=== PATIENT | female | born 1945 | race Caucasian/White ===

== ENCOUNTER 2024-03-02 18:17 | Inpatient (IN) | payer MEDICARE, BC ==
[~2024-03-02] VITALS: Ht 157.5 cm; Wt 73.9 kg
[2024-03-02] MEDS ORDERED: PANT40TA49 PO (18:41)
[2024-03-02] MEDS ORDERED: LORA0.5T48 PO (18:41)
[2024-03-02] MEDS ORDERED: ALEN70TA3 PO (18:41)
[2024-03-02] MEDS ORDERED: APIX5TAB PO (18:41)
[2024-03-02] MEDS ORDERED: GABA-532 PO (18:41)
[2024-03-02] MEDS ORDERED: LEVO100T10 PO (18:41)
[2024-03-02] MEDS ORDERED: CALC-343 PO (18:41)
[2024-03-02] MEDS ORDERED: LAMO200T10 PO (18:41)
[2024-03-02] MEDS ORDERED: ESCI10TA PO (18:41)
[2024-03-02] MEDS: IV NORMAL SALINE 500 ML BAG IV ONE (19:34)
[2024-03-02 19:45] LABS: BASOPHILS % (AUTO) 0.4 % (0.0-2.0); EOSINOPHILS # (AUTO) 0.2 K/uL (0.0-0.7); EOSINOPHILS % (AUTO) 2.6 % (0.0-7.0); HEMATOCRIT 38.6 % (31.2-41.9); HEMOGLOBIN 13.3 g/dL (10.9-14.3); LYMPHOCYTES # (AUTO) 1.4 K/uL (0.8-4.8); MEAN CORPUSCULAR HEMOGLOBIN 31.3 uug (24.7-32.8); MEAN CORPUSCULAR HGB CONC 35 g/dL (32.3-35.6); MEAN CORPUSCULAR VOLUME 90.7 fL (75.5-95.3); MONOCYTES # (AUTO) 0.6 K/uL (0.1-1.30); MONOCYTES % (AUTO) 9.8 % (0.0-11.0); NEUTROPHILS # (AUTO) 3.8 K/uL (1.8-8.9); NEUTROPHILS % (AUTO) 63.2 % (38.5-71.5); PLATELET COUNT (AUTO) 207 K/uL (179-408); RED BLOOD CELL COUNT(AUTO) 4.26 MIL/uL (3.63-4.92); RED CELL DISTRIBUTION WIDTH 13.2 % (12.3-17.7)
[2024-03-02 20:14] LABS: ALBUMIN 3.5 g/dL (3.4-5.0); BILIRUBIN,TOTAL 0.4 mg/dL (0.2-1.0); CALCIUM 8.7 mg/dL (8.5-10.1); CREATININE 0.6 mg/dL (0.6-1.3); MAGNESIUM 2.2 mg/dL (1.8-2.4); POTASSIUM 3.5 mmol/L (3.5-5.1); TOTAL PROTEIN, SERUM 7.2 g/dL (6.4-8.2)
[2024-03-02 20:15] LABS: C-REACTIVE PROTEIN 1.37 mg/dL (0.00-0.30)
[2024-03-02] MEDS ORDERED: FUROSEMIDE 40 MG/4 ML VIAL ONE (23:09)
[2024-03-02] MEDS: FUROSEMIDE 40 MG/4 ML VIAL IV ONE (23:15)
[2024-03-03] VITALS (12 sets, daily range): BP systolic 132–156; BP diastolic 59–82; TEMP 97.7–98.7; O2SAT 94–98
[2024-03-03] MEDS ORDERED: hydrALAZINE HCL 25 MG TABLET PO PRN (00:15)
[2024-03-03] MEDS: BENZONATATE 100 MG CAPSULE PO PRN (02:02)
[2024-03-03] MEDS: ALBUTEROL SULFATE 2.5 MG/3 ML NEBU NEB PRN (02:27)
[2024-03-03] MEDS ORDERED: methylPREDNISolone SOD SUCC 40 MG/ML VIAL IV SCH (04:00)
[2024-03-03] MEDS: GUAIFENESIN/DEXTROMETHORPHAN 5 ML UDC PO PRN (04:53)
[2024-03-03] MEDS: PANTOPRAZOLE SODIUM 40 MG TABLET.DR PO SCH (06:19)
[2024-03-03 06:57] LABS: BASOPHILS % (AUTO) 0.3 % (0.0-2.0); EOSINOPHILS # (AUTO) 0.2 K/uL (0.0-0.7); EOSINOPHILS % (AUTO) 2.3 % (0.0-7.0); HEMATOCRIT 37.5 % (31.2-41.9); HEMOGLOBIN 13.1 g/dL (10.9-14.3); LYMPHOCYTES # (AUTO) 1.8 K/uL (0.8-4.8); LYMPHOCYTES % (AUTO) 25.1 % (20.5-51.5); MEAN CORPUSCULAR HEMOGLOBIN 31.5 uug (24.7-32.8); MEAN CORPUSCULAR HGB CONC 35 g/dL (32.3-35.6); MEAN CORPUSCULAR VOLUME 90.1 fL (75.5-95.3); MONOCYTES # (AUTO) 0.7 K/uL (0.1-1.30); MONOCYTES % (AUTO) 9.1 % (0.0-11.0); NEUTROPHILS # (AUTO) 4.6 K/uL (1.8-8.9); NEUTROPHILS % (AUTO) 63.2 % (38.5-71.5); PLATELET COUNT (AUTO) 207 K/uL (179-408); RED BLOOD CELL COUNT(AUTO) 4.17 MIL/uL (3.63-4.92); RED CELL DISTRIBUTION WIDTH 13.5 % (12.3-17.7); WHITE BLOOD COUNT (AUTO) 7.2 K/uL (3.8-11.8)
[2024-03-03 07:13] LABS: ALANINE AMINOTRANSFERASE 31 U/L (14-59); ALBUMIN 3.5 g/dL (3.4-5.0); ALKALINE PHOSPHATASE 71 U/L (50-136); ASPARTATE AMINOTRANSFERASE 22 U/L (15-37); BILIRUBIN,TOTAL 0.5 mg/dL (0.2-1.0); CALCIUM 8.5 mg/dL (8.5-10.1); CARBON DIOXIDE 26 mmol/L (21-32); CHLORIDE 102 mmol/L (98-107); CHOLESTEROL 173 mg/dL (<200); CREATININE 0.6 mg/dL (0.6-1.3); GLUCOSE 104 mg/dL (74-106); HDL CHOLESTEROL 51 mg/dL (40-60); PHOSPHOROUS 2.7 mg/dL (2.5-4.9); POTASSIUM 3.2 mmol/L (3.5-5.1); SODIUM SERUM 138 mmol/L (136-145); TOTAL PROTEIN, SERUM 7.1 g/dL (6.4-8.2); TRIGLYCERIDES 92 MG/DL (30-150); UREA NITROGEN, BLOOD 13 mg/dL (7-18)
[2024-03-03 07:16] LABS: DIFFERENTIAL COMMENT 1
[2024-03-03 07:28] LABS: THYROID STIMULATING HORMONE 2.373 mIU/mL (0.358-3.740)
[2024-03-03 07:29] LABS: IRON, SERUM 29 ug/dL (50-175)
[2024-03-03] MEDS: CALCIUM CARBONATE 500 MG TAB.CHEW PO SCH (08:36)
[2024-03-03] MEDS: ESCITALOPRAM OXALATE 10 MG TABLET PO SCH (08:37)
[2024-03-03] MEDS: FUROSEMIDE 20 MG/2 ML VIAL IV SCH (08:37)
[2024-03-03] MEDS: APIXABAN 5 MG TABLET PO SCH (08:38)
[2024-03-03] MEDS: LAMOTRIGINE 200 MG TABLET PO SCH (08:40)
[2024-03-03] MEDS: LEVOTHYROXINE SODIUM 100 MCG TABLET PO SCH (08:40)
[2024-03-03] MEDS ORDERED: ENOXAPARIN SODIUM 40 MG/0.4 ML DISP.SYRIN SQ SCH (09:00)
[2024-03-03] MEDS ORDERED: PANTOPRAZOLE SODIUM 40 MG TABLET.DR PO SCH (09:00)
[2024-03-03] MEDS: ACETAMINOPHEN 325 MG TABLET PO PRN (09:01)
[2024-03-03] MEDS: AZITHROMYCIN IV 500 MG in IV DEXTROSE 5% 250 ML IV SCH (10:23)
[2024-03-03] MEDS: GUAIFENESIN/DEXTROMETHORPHAN TAB.SR.12H PO SCH (10:23)
[2024-03-03] MEDS: ONDANSETRON 4 MG/2 ML VIAL IV PRN (11:26)
[2024-03-03] MEDS: POTASSIUM CHLORIDE 20 MEQ TAB.PRT.SR PO SCH (13:46)
[2024-03-03] MEDS: GABAPENTIN 100 MG CAPSULE PO SCH (17:05)
[2024-03-03] MEDS: methylPREDNISolone SOD SUCC 40 MG/ML VIAL IV SCH (19:54)
[2024-03-03] MEDS: LORAZEPAM 0.5 MG TABLET PO SCH (20:03)
[2024-03-03] MEDS: DOCUSATE SODIUM 100 MG CAPSULE PO SCH (20:03)
[2024-03-04] VITALS (8 sets, daily range): BP systolic 113–142; BP diastolic 64–77; TEMP 97.6–98.2; O2SAT 93–99
[2024-03-04] MEDS: methylPREDNISolone SOD SUCC 40 MG/ML VIAL IV SCH (06:03)
[2024-03-05] VITALS (10 sets, daily range): BP systolic 135–151; BP diastolic 63–84; TEMP 97.9–98.6; O2SAT 94–98
[2024-03-06] VITALS (9 sets, daily range): BP systolic 149–156; BP diastolic 67–82; TEMP 97.1–98.2; O2SAT 93–98
[2024-03-06] MEDS: methylPREDNISolone SOD SUCC 40 MG/ML VIAL IV SCH (12:35)
[2024-03-06] MEDS: ACETYLCYSTEINE 20% 800 MG/4 ML VIAL NEB SCH (23:12)
[2024-03-07] VITALS (10 sets, daily range): BP systolic 138–165; BP diastolic 71–87; TEMP 97.7–98.6; O2SAT 95–98
[2024-03-07 06:59] LABS: CALCIUM 8.4 mg/dL (8.5-10.1); CREATININE 0.7 mg/dL (0.6-1.3); POTASSIUM 4.1 mmol/L (3.5-5.1)
[2024-03-07] MEDS: MIRALAX 17 GM POWD.PACK PO ONE (10:45)
[2024-03-07] MEDS: BISACODYL 10 MG SUPP.RECT RC ONE (15:11)
[2024-03-07] MEDS ORDERED: ACETYLCYSTEINE 20% 800 MG/4 ML VIAL ONE (19:56)
[2024-03-07] MEDS ORDERED: ALBUTEROL SULFATE 2.5 MG/3 ML NEBU ONE (19:56)
[2024-03-08] VITALS (11 sets, daily range): BP systolic 137–153; BP diastolic 66–85; TEMP 97.4–98; O2SAT 93–99
[2024-03-08] MEDS: MIRALAX 17 GM POWD.PACK PO PRN (13:22)
[2024-03-08] MEDS: SENNOSIDES 1 TABLET PO SCH (13:44)
[2024-03-08] MEDS: BENZONATATE 100 MG CAPSULE PO PRN (17:55)
[2024-03-09] VITALS (7 sets, daily range): BP systolic 127–142; BP diastolic 53–69; TEMP 97.4–98; O2SAT 91–98
[2024-03-09] MEDS ORDERED: ALENDRONATE SODIUM 70 MG TABLET PO SCH (21:30)
[2024-03-10] MEDS ORDERED: methylPREDNISolone SOD SUCC 40 MG/ML VIAL IV SCH (09:00)
[2024-03-11 19:51] VITALS: O2SAT 97
== END 2024-03-09 20:19 | DRG 202 ==
LOC: ER 18:22 → TELE3 22:35 → MEDSURG3 03-05 08:35
PROVIDERS: ADMIT Internal Medicine; ATTEND Internal Medicine
PROC: 05HB33Z Insertion of Infusion Device into Right Basilic Vein, Percutaneous Approach (ICD-10-PCS; principal; 2024-03-07)
DX: J20.9 Acute bronchitis, unspecified (principal); J96.21 Acute and chronic respiratory failure with hypoxia; F31.81 Bipolar II disorder; D86.0 Sarcoidosis of lung; Z86.73 Personal history of transient ischemic attack (TIA), and cerebral infarction without residual deficits; K59.00 Constipation, unspecified; E87.6 Hypokalemia; Z86.711 Personal history of pulmonary embolism; Z79.01 Long term (current) use of anticoagulants; Z79.899 Other long term (current) drug therapy; B34.9 Viral infection, unspecified; Z90.710 Acquired absence of both cervix and uterus; Z79.83 Long term (current) use of bisphosphonates
CPT/HCPCS: 36415; 71045; 71250; 74018; 83550; 83735; 84100; 84443; 84484; 85025; 86140; 87040; 93005; 93307; 94640; 94760; A6209; G0378; J0456; J1940; J2405; J2920; J7040; J7050

== ENCOUNTER 2024-03-09 20:20 | Inpatient (IN) | payer MEDICARE, BC ==
[~2024-03-09] VITALS: Ht 157.5 cm; Wt 73.9 kg
[2024-03-09 20:00] VITALS: BP 130/69; TEMP 98.1; O2SAT 94
[~2024-03-09 20:20] MED LIST: ALEN70TA3 PO; APIX5TAB PO; CALC-343 PO; ESCI10TA PO; GABA-532 PO; LAMO200T10 PO; LEVO100T10 PO; LORA0.5T48 PO; PANT40TA49 PO
[2024-03-09] MEDS: DOCUSATE SODIUM 100 MG CAPSULE PO SCH (22:22)
[2024-03-09] MEDS: LORAZEPAM 0.5 MG TABLET PO SCH (22:22)
[2024-03-09] MEDS: SENNOSIDES 1 TABLET PO SCH (22:22)
[2024-03-09] MEDS ORDERED: REMEDY ESSENTIAL ZINC PASTE 113 GM TOP PRN (23:30)
[2024-03-10] VITALS (7 sets, daily range): BP systolic 102–130; BP diastolic 52–68; TEMP 97.7–98.4; O2SAT 94–98
[2024-03-10] MEDS ORDERED: LEVOTHYROXINE SODIUM 100 MCG TABLET PO SCH (06:00)
[2024-03-10] MEDS: PANTOPRAZOLE SODIUM 40 MG TABLET.DR PO SCH (06:39)
[2024-03-10] MEDS: LEVOTHYROXINE SODIUM 100 MCG TABLET PO SCH (06:39)
[2024-03-10] MEDS: GABAPENTIN 300 MG CAPSULE PO SCH (17:37)
[2024-03-10] MEDS: APIXABAN 5 MG TABLET PO SCH (17:42)
[2024-03-10] MEDS: ALBUTEROL SULFATE 2.5 MG/3 ML NEBU NEB PRN (18:36)
[2024-03-11 04:08] VITALS: O2SAT 99
[2024-03-11 06:00] VITALS: BP 123/57; TEMP 98.2; O2SAT 96
[2024-03-11] MEDS ORDERED: LEVOTHYROXINE SODIUM 100 MCG TABLET PO SCH (07:00)
[2024-03-11 07:38] LABS: BASOPHILS % (AUTO) 0.3 % (0.0-2.0); EOSINOPHILS # (AUTO) 0.2 K/uL (0.0-0.7); EOSINOPHILS % (AUTO) 2.7 % (0.0-7.0); HEMATOCRIT 39.1 % (31.2-41.9); HEMOGLOBIN 13.7 g/dL (10.9-14.3); LYMPHOCYTES # (AUTO) 2.6 K/uL (0.8-4.8); LYMPHOCYTES % (AUTO) 30.9 % (20.5-51.5); MEAN CORPUSCULAR HEMOGLOBIN 31.6 uug (24.7-32.8); MEAN CORPUSCULAR HGB CONC 35 g/dL (32.3-35.6); MEAN CORPUSCULAR VOLUME 90.3 fL (75.5-95.3); MONOCYTES # (AUTO) 0.8 K/uL (0.1-1.30); MONOCYTES % (AUTO) 9.1 % (0.0-11.0); NEUTROPHILS # (AUTO) 4.9 K/uL (1.8-8.9); PLATELET COUNT (AUTO) 293 K/uL (179-408); RED BLOOD CELL COUNT(AUTO) 4.33 MIL/uL (3.63-4.92); RED CELL DISTRIBUTION WIDTH 12.9 % (12.3-17.7); WHITE BLOOD COUNT (AUTO) 8.5 K/uL (3.8-11.8)
[2024-03-11 07:43] LABS: DIFFERENTIAL COMMENT 1
[2024-03-11 07:47] LABS: ALBUMIN 2.9 g/dL (3.4-5.0); BILIRUBIN,TOTAL 0.5 mg/dL (0.2-1.0); CALCIUM 8.4 mg/dL (8.5-10.1); CREATININE 0.8 mg/dL (0.6-1.3); MAGNESIUM 2.4 mg/dL (1.8-2.4); PHOSPHOROUS 4.8 mg/dL (2.5-4.9); POTASSIUM 4.2 mmol/L (3.5-5.1); TOTAL PROTEIN, SERUM 6.3 g/dL (6.4-8.2)
[2024-03-11] MEDS ORDERED: PANTOPRAZOLE SODIUM 40 MG TABLET.DR PO SCH (09:00)
[2024-03-11] MEDS: LAMOTRIGINE 200 MG TABLET PO SCH (09:35)
[2024-03-11] MEDS: ESCITALOPRAM OXALATE 10 MG TABLET PO SCH (09:35)
[2024-03-11 15:22] VITALS: BP 97/57; TEMP 99; O2SAT 94
[2024-03-11 15:53] VITALS: O2SAT 99
[2024-03-11 20:00] VITALS: BP 100/63; TEMP 98.2; O2SAT 93
[2024-03-12 06:23] VITALS: BP 115/58; TEMP 98; O2SAT 94
[2024-03-12 16:00] VITALS: O2SAT 97
[2024-03-12 16:26] VITALS: BP 141/48; TEMP 98.6; O2SAT 96
[2024-03-12 20:00] VITALS: BP 114/73; TEMP 98.2; O2SAT 94
[2024-03-12 20:17] VITALS: O2SAT 97
[2024-03-13 01:29] VITALS: O2SAT 97
[2024-03-13 06:00] VITALS: BP 108/50; TEMP 98; O2SAT 96
[2024-03-13 07:02] LABS: BASOPHILS % (AUTO) 0.3 % (0.0-2.0); EOSINOPHILS # (AUTO) 0.2 K/uL (0.0-0.7); EOSINOPHILS % (AUTO) 2.7 % (0.0-7.0); HEMATOCRIT 37.3 % (31.2-41.9); HEMOGLOBIN 13.3 g/dL (10.9-14.3); LYMPHOCYTES # (AUTO) 2.6 K/uL (0.8-4.8); MEAN CORPUSCULAR HEMOGLOBIN 31.8 uug (24.7-32.8); MEAN CORPUSCULAR HGB CONC 36 g/dL (32.3-35.6); MEAN CORPUSCULAR VOLUME 89.2 fL (75.5-95.3); MONOCYTES # (AUTO) 0.7 K/uL (0.1-1.30); MONOCYTES % (AUTO) 10.1 % (0.0-11.0); NEUTROPHILS # (AUTO) 3.7 K/uL (1.8-8.9); NEUTROPHILS % (AUTO) 50.9 % (38.5-71.5); PLATELET COUNT (AUTO) 303 K/uL (179-408); RED BLOOD CELL COUNT(AUTO) 4.18 MIL/uL (3.63-4.92); RED CELL DISTRIBUTION WIDTH 13.1 % (12.3-17.7); WHITE BLOOD COUNT (AUTO) 7.3 K/uL (3.8-11.8)
[2024-03-13 07:10] LABS: DIFFERENTIAL COMMENT 1
[2024-03-13 07:12] LABS: CALCIUM 8.6 mg/dL (8.5-10.1); CREATININE 0.7 mg/dL (0.6-1.3); MAGNESIUM 2.5 mg/dL (1.8-2.4); PHOSPHOROUS 3.2 mg/dL (2.5-4.9); POTASSIUM 4.2 mmol/L (3.5-5.1)
[2024-03-13 12:52] VITALS: O2SAT 98
[2024-03-13 16:06] VITALS: BP 105/51; TEMP 98.4; O2SAT 97
[2024-03-13 20:11] VITALS: BP 122/56; TEMP 98.1; O2SAT 95
[2024-03-14 05:05] VITALS: O2SAT 98
[2024-03-14 06:02] VITALS: BP 102/54; TEMP 98.8; O2SAT 94
[2024-03-14 06:26] LABS: BASOPHILS % (AUTO) 0.4 % (0.0-2.0); EOSINOPHILS # (AUTO) 0.2 K/uL (0.0-0.7); EOSINOPHILS % (AUTO) 2.5 % (0.0-7.0); HEMATOCRIT 36.4 % (31.2-41.9); HEMOGLOBIN 12.9 g/dL (10.9-14.3); LYMPHOCYTES # (AUTO) 2.4 K/uL (0.8-4.8); LYMPHOCYTES % (AUTO) 38.7 % (20.5-51.5); MEAN CORPUSCULAR HEMOGLOBIN 31.8 uug (24.7-32.8); MEAN CORPUSCULAR HGB CONC 35 g/dL (32.3-35.6); MEAN CORPUSCULAR VOLUME 89.9 fL (75.5-95.3); MONOCYTES # (AUTO) 0.7 K/uL (0.1-1.30); MONOCYTES % (AUTO) 10.7 % (0.0-11.0); NEUTROPHILS # (AUTO) 2.9 K/uL (1.8-8.9); NEUTROPHILS % (AUTO) 47.7 % (38.5-71.5); PLATELET COUNT (AUTO) 287 K/uL (179-408); RED BLOOD CELL COUNT(AUTO) 4.05 MIL/uL (3.63-4.92); RED CELL DISTRIBUTION WIDTH 12.9 % (12.3-17.7); WHITE BLOOD COUNT (AUTO) 6.1 K/uL (3.8-11.8)
[2024-03-14 06:46] LABS: DIFFERENTIAL COMMENT 1
[2024-03-14 07:01] LABS: CALCIUM 8.1 mg/dL (8.5-10.1); CREATININE 0.8 mg/dL (0.6-1.3); MAGNESIUM 2.5 mg/dL (1.8-2.4); POTASSIUM 3.9 mmol/L (3.5-5.1)
[2024-03-14 12:00] VITALS: BP 140/59; TEMP 98.3; O2SAT 95
== END 2024-03-14 15:50 | disposition home or self-care (01) | DRG 202 ==
PROVIDERS: ADMIT Physical Medicine & Rehabilitation Pain Medicine; ATTEND Physical Medicine & Rehabilitation Pain Medicine
DX: J20.8 Acute bronchitis due to other specified organisms (principal); I50.33 Acute on chronic diastolic (congestive) heart failure; J96.21 Acute and chronic respiratory failure with hypoxia; E44.0 Moderate protein-calorie malnutrition; R53.1 Weakness; D86.9 Sarcoidosis, unspecified; E03.9 Hypothyroidism, unspecified; I11.0 Hypertensive heart disease with heart failure; K21.9 Gastro-esophageal reflux disease without esophagitis; Z86.73 Personal history of transient ischemic attack (TIA), and cerebral infarction without residual deficits; Z86.711 Personal history of pulmonary embolism; Z79.01 Long term (current) use of anticoagulants; Z91.81 History of falling; E83.51 Hypocalcemia; R74.01 Elevation of levels of liver transaminase levels; Z88.0 Allergy status to penicillin; Z88.2 Allergy status to sulfonamides; Z88.8 Allergy status to other drugs, medicaments and biological substances; I80.8 Phlebitis and thrombophlebitis of other sites
CPT/HCPCS: 36415; 71045; 83735; 84100; 85025; 94640; 94760; 97535-GO-CO